=== PATIENT | male | born 1975 | race Caucasian/White ===

== ENCOUNTER 2025-05-02 15:15 | Outpatient (CLI) | payer OTHER, SELFPAY ==
--- OUTSIDE RECORDS SUMMARY | 2015-05-03 03:00 | XMS_ITS | Continuity of Care Document ---
Author Organization [facility] Address [address] [place] [address] [place] [address] Phone Care Team Providers Care Surfacer Operator Name Role Phone Julio Cesar Mendez MD Unavailable Unavailable Allergies, Adverse Reactions, Alerts Substance Reaction Status Criticality No Known Allergies Active No Inform ation Medications Medication Instructions Dosage Effective Dates (start - stop) Status Comments Valium 5 mg tablet take 1 tablet by oral route 2 times every day 5 MG - Active avoid driving or oeprate machines Zoloft 100 mg tablet take 1 tablet by oral route every day 100 MG - Active Depo-Testosterone 200 mg/mL intramuscular oil inject 1 milliliter (200MG) by intramuscular route every 2 weeks 200 MG - Active Robaxin-750 750 mg tablet take 1 tablet by oral route every 6 hours as needed 750 MG - Active PRN for pain, avoid driving or operate machines Seroquel 100 mg tablet take 1 tablet by oral route every bedtime 100 MG - Active Flow-Matthew Vented Needle once every 2 weeks - Active BD Bulk Syringe Slip Tip 1 mL once every two weeks - Active Procedures Procedure Date OFFICE/OUTPATIENT VISIT, EST OFFICE/OUTPATIENT VISIT, EST OFFICE/OUTPATIENT VISIT, EST OFFICE/OUTPATIENT VISIT, EST OFFICE/OUTPATIENT VISIT, EST OFFICE/OUTPATIENT VISIT, EST OFFICE/OUTPATIENT VISIT, EST PREV VISIT, EST, AGE 18-39 Advance Directives Directive Yes / No Effective Date File Name No Information Encounters Encounter Description Practice Location Reason(s) For Visit Diagnoses Date Provider Providers Copied on Encounter OFFICE/OUTPA TIENT VISIT, [facility], [address], [place], [place], [address], [place] tel:[phone] [facility] back pain (chief complaint) LumbagoNoncomplian ce w/ treatment 5 Andrea Harrell. [address], [place], [place], [address] , [place]. tel:[phone] Referring Provider: Julio Cesar Mendez [address], [place], [place], [address]. tel:[phone] OFFICE/OUTPA TIENT VISIT, [facility], [facility] [address], [place], [place], [address], [place] tel:[phone] [facility] depression (chief complaint)P ituitary adenoma (chief complaint)c hronic pain (chief complaint) Depressive disorder, not elsewhere classifiedLumbagoO ther testicular hypofunctionPituit remedios adenoma 5 Andrea Harrell. [address], [place], [place], [address] , [place]. tel:[phone] Referring Provider: Meghan Frank [address], [place], [place], [address]. tel:[phone] OFFICE/OUTPA TIENT VISIT, [facility], [facility] [address], [place], [place], [address], [place] tel:[phone] [facility] depression (chief complaint)c hronic pain (chief complaint)L ow T (chief complaint) LumbagoDepressive disorder, not elsewhere classifiedOther testicular hypofunctionPituit remedios adenoma 5 Andrea Harrell. [address], [place], [place], [address] , [place]. tel:[phone] Referring Provider: Meghan Frank [address], [place], [place], [address]. tel:[phone] OFFICE/OUTPA TIENT VISIT, [facility], [address], [place], [place], [address], [place] tel:[phone] [facility] pituitary lesion (chief complaint)f atigue (chief complaint)c hronic pain (chief complaint)d epression (chief complaint) Depressive disorder, not elsewhere classifiedOther testicular hypofunctionLumbag oPituitary adenoma 5 Andrea Harrell. [address], [place], [place], [address] , [place]. tel:[phone] Referring Provider: Julio Cesar Mendez, [address], [place], [place], [address]. tel:[phone] OFFICE/OUTPA TIENT VISIT, [facility], [address], [place], [place], [address], [place] tel:[phone] [facility] low T (chief complaint)g ynecomastia (chief complaint)p ituitary adenoma (chief complaint)c hronic pain (chief complaint) Other anterior pituitary disordersOther testicular hypofunctionHypert rophy of breastLumbago 4 Andrea Harrell. [address], [place], [place], [address] , [place]. tel:[phone] Referring Provider: Meghan Frank [address], [place], [place], [address]. tel:[phone] OFFICE/OUTPA TIENT VISIT, [facility], [address], [place], [place], [address], [place] tel:[phone] [facility] chornic pain (chief complaint)T (chief complaint)a nxiety (chief complaint)g ynecomastia (chief complaint) DepressionLumbagoO ther testicular hypofunctionHypert rophy of breast 4 Andrea Harrell. [address], [place], [place], [address] , [place]. tel:[phone] Referring Provider: Meghan Frank [address], [place], [place], [address]. tel:[phone] OFFICE/OUTPA TIENT VISIT, EST [facility], [address], [place], [place], [address], [place] tel:[phone] [facility] back pain (chief complaint)i nsomnia (chief complaint)T G (chief complaint)a nxiety (chief complaint) LumbagoDepressionO ther and unspecified hyperlipidemiaHype rtrophy of breast 4 Andrea Harrell. [address], [place], [place], [address] , [place]. tel:[phone] Referring Provider: Julio Cesar Mendez [address], [place], [place], [address]. tel:[phone] PREV VISIT, EST, AGE 18-39 [facility], [address], [place], [place], [address], [place] tel:[phone] [facility] Physical (chief complaint) Routine Medical ExamRoutine Medical Exam 4 Andrea Harrell. [address], [place], [place], [address] , [place]. tel:[phone] Referring Provider: Julio Cesar Mendez [address], [place], [place], [address]. tel:[phone] Family History Family Member Type Diagnosis Age At Onset Father Problem (finding) Cancer - prostate CA 64 Father Problem (finding) Diabetes mellitus Mother Problem (finding) Cancer, lung Brother Problem (finding) Alive and well Payers Payer name Insurance type Covered republican ID Authoriza tion(s) No Information Social History Type Description Quantity Date Captured Comments Alcohol Use Details No Caffeine Use Details Unknown Tobacco Use Status Cigarette smoker Smoking Status Current some day smoker 015 Sex Male Vital Signs Date / Time: Height Weight BMI Pulse Rate Blood Pressure Temperature Respiratory Rate Body Surface Area Head Circumference BMI percentile Pulse Ox Inhaled Ox 9:22 AM 182.88 cm 187.00 lbs 25.3 6 kg/m eter (2) 90 /min 136/78 mm[Hg] 97.5 F 16 /min Chief Complaint And Reason For Visit From encounter dated '05/03/2015 08:00'. back pain (chief complaint). Description: Additional information: Pt has chronic back pain. Pt wants pain meds. He is not happy with muscle relaxant and mobic. He used to be on methadone. Pt wants stronger pain meds. Plan Of Treatment Date Type Action Status Goal Tobacco cessation counseling completed Goal Tobacco cessation counseling completed Goal Tobacco cessation counseling completed Goal Tobacco cessation counseling completed Referral Ordered: Neurology (related to Pituitary adenoma) ordered Referral Ordered: Referrals: Neurology. Evaluate and treat ordered Referral Ordered: Neurology (related to Pituitary adenoma) ordered Referral Ordered: Endocrinology, Diabetes and Metabolism (related to Pituitary adenoma) ordered Referral Ordered: Referrals: Endocrinology, Diabetes and Metabolism ordered Referral Ordered: Referrals: Neurology ordered Referral Ordered: Referral: Neurosurgery. ordered Referral Ordered: Endocrinology (related to Other testicular hypofunction) ordered Referral Ordered: Pain Management (related to Lumbago) ordered Referral Ordered: Referral: Pain Management. ordered Referral Ordered: Referral: Endocrinology. ordered Referral Ordered: MRI BRAIN W/O & W/DYE ordered Referral Ordered: MRI LUMBAR SPINE W/O DYE ordered Referral Ordered: US EXAM, BREAST(S) ordered History Of Present Illness Encounter Date Complaint History Of Prese nt Illness back pain Additional infor mation: Pt has chronic back pain. Pt wants pain meds. He is not happy with muscle relaxant and mobic. He used to be on methadone. Pt wants stronger pain meds. chronic pain Pt has chornic n gabrielle and back pain Pt states that robaxin working ok but he still has a lot of pain Pt denies any loss of bowel or bladder control. Pt told me insurance told him I need to refer him to pain management Pituitary adenoma Pt states that he has apopintment with endo at [facility] in april now. Pt is on depo shot and he feels that it is doing ok with his libodo and energy. Pt denies any urinary symptoms. Pt denies any headache depression The patient pres ents with anxious/fearful thoughts but denies fatigue. The patient denies any headache, vomiting and weight gain. Additional information: Pt has depression and poor mood. Pt denies any suicidal thought. Pt states that prozac is not helping. Pt takes seroquel for insomnia and working ok Pt also has chronic anxiety. Pt treid and failed buspar and vistaril. Low T Pt has low T and also pituariny adenoma. Pt denies any headche. Pt has appointment with iván on 03/10/15. Pt has not heard from neurology yet depression The patient pres ents with anxious/fearful thoughts and fatigue. The patient denies any urinary frequency and vomiting. Additional information: Pt has chronic anxiety and depression. Pt takes prozac and seroquel. Pt stats that he still feels depressed and unable to sleep. Pt denies any suicidal thought, Insomnia also not well cotnrolled. chronic pain Pt has chronic n gabrielle and back pain. Pt used to go to methadone clinic but he does not go anymore. Pt states that he canot afford it. Pt states that mobic does not help. Pt wnats pain meds Pt denies any loss of richard or bladder control depression The patient pres ents with anxious/fearful thoughts and fatigue. The depression is associated with headache. The patient denies any nausea, urinary frequency and vomiting. Additional information: Pt has depression . Pt used to take prozac. Pt is out. Pt denies any suicidal thought. Pt also used to take seroquel for insomnia. Pt is out also. chronic pain Pt has chronic b ack and neck pain. Pt was getting methadone but he was kicked out metadone program due to unable to afford it. fatigue Additional infor mation: Pt has severe fatigue and lack of motivation Pt feels depressed. Pt denies any suicidal thought. pituitary lesion Pt has pituitar y adenoma. Pt has not seen neurosurgery yet. Pt is off depo shot. Pt feels fatigue. Pt has mild headache. Instructions Date Instruction Additional Infor mation No Information Assessments Type Assessment Date assessment Lumbago assessment Noncompliance w/ treatment Mental Status Date Cognitive Assessment Orientation - [place] ed to time, place, person, situation.
--- NOTE | ~2025-05-02 | XR_ITS ---
EXAMINATION: XR knee LT 3V, 05/02/2025 15:38 CDT HISTORY: Inj of L knee X 1 WK AGO MEDIAL KNEE PAIN COMPARISON: No comparisons available. Findings: No acute fracture or malalignment. No significant degenerative changes. Soft tissues unremarkable. Impression: No acute fracture or malalignment. Reviewed, dictated and finalized at location A. Impression: No acute fracture or malalignment.
[2025-05-02 16:13] LABS: Hematocrit 42.7 % (42.0-52.0); Hemoglobin 14.3 g/dL (14.0-18.0); Mean Corpuscular HGB Conc 33.5 g/dl (32-36); Mean Corpuscular Hemoglobin 30.7 pg (26-34); Mean Corpuscular Volume 91.6 fl (80-100); Platelet Count Result 277 k/mm3 (150-375); Red Blood Count 4.66 M/mm3 (4.6-6.20); White Blood Count 9.8 K/mm3 (4.5-10.0)
[2025-05-02 16:18] LABS: Alanine Aminotransferase 15 U/L (6-50); Albumin Level 4.4 g/dL (3.5-5.1); Alkaline Phosphatase 83 U/L (38-126); Anion Gap 9 mmol/L (4-12); Aspartate Amino Transferase 25 U/L (17-59); Bilirubin,Total 0.2 mg/dL (0.2-1.3); Blood Urea Nitrogen 16 mg/dL (9-20); Calcium 8.7 mg/dL (8.4-10.2); Carbon Dioxide 27 mmol/L (22-30); Chloride 104 mmol/L (98-107); Cholesterol 162 mg/dL (0-200); Estimated Glomerular Filt Rate > 60; Glucose 105 mg/dL (65-110); HDL Direct 36 mg/dL; Potassium 3.9 mmol/L (3.4-5.0); Sodium 140 mmol/L (137-145); Total Protein 7.7 g/dL (6.3-8.2); Triglycerides 184 mg/dL (<150)
[2025-05-02 16:28] LABS: Hemoglobin A1C 5.5 % (<5.7)
[2025-05-02 16:54] LABS: Prostate Specific Antigen 0.5 ng/mL (< OR = 4.0); Thyroid Stimulating Hormone 2.390 uIU/mL (0.465-4.680)
--- OUTSIDE RECORDS SUMMARY | 2025-05-02 18:11 | XMS_ITS | Clinical Summary ---
Author Organization [facility] Address [address] [place] [address] Care Team Providers Care Administrative Coordinator Name Role Phone Laura Greer PA-C Primary Care Provider [phone] Source Comments [facility],non-owned Affiliates and Associated Physician Practices is amultiple site organization consisting of ambulatory clinics and hospital sitesin [place], [place], [place] and [place]. This disclosure is being madepursuant to the Care Everywhere program and may not contain all information available regarding this patient. Last updated 18.[employer] [facility] Allergies No known active allergies Medications * This document contains information received from the source organization and may not represent a complete record from that organization. * Be aware that medications may not be up to date on this document. Alwaysverify current medications with the patient. DULoxetine (Cymbalta) 60 MG capsule Take 1 (one) capsule by mouth at bedtime 01/01/2024 Active QUEtiapine (SEROquel) 50 MG tablet Take 1 (one) tablet by mouth 2 times daily 01/01/2024 Active tamsulosin (Flomax) 0.4 MG capsule TAKE 1 CAPSULE BY MOUTH EVERY DAY AT BEDTIME 11/20/2023 Active tenofovir disoproxil fumarate (Viread) 300 MG tabletIndicatio ns:Chronic viral hepatitis B without delta agent and without coma (HCC) Take 1 (one) tablet by mouth once daily as directed. 90 tablet 3 03/23/2024 Active Active Problems Problem Noted Date Diagnosed Date Hepatitis B infection withou t delta agent without hepatic coma 02/10/2024 Overview (02/10/2024): 02/10/24 Fibroscan CAP 170, LSM 5.2 kPa Family History Medical History Relation Name Comments Other - Hepatic/Liver Neg Hx Social History Tobacco Use Types Packs/Day Years Used Date Smoking Tobacco: Every Day Cigarettes 1 30 Smokeless Tobacco: Never Tobacco Cessation:Ready to Q uit: Not Asked; Counseling Given: Not Answered Alcohol Use Standard Drinks/Week Comments Not Currently 0 (1 standard drink = 0.6 oz pur e alcohol) rare ETOH since 29 years old Sex and Gender Information Value Date Recorded Sex Assigned at Not on file Legal Sex Male 6:48 PM FURN[employer] Gender Identity Not on file Sexual Orientation Not on file Last Filed Vital Signs Vital Sign Reading Time Taken Comments Blood Pressure 106/66 02/10/2024 2:12 PM CDT Pulse 84 02/10/2024 2:12 PM CDT Temperature 36.5 C (97.7 F) 02/10/2024 2:12 PM CDT Respiratory Rate 18 05/16/2013 9:00 AM CDT Oxygen Saturation 98% 02/10/2024 2:12 PM CDT Inhaled Oxygen Concentration - - Weight 88 kg (194 lb) 02/10/2024 2:12 PM CDT Height 182.9 cm (6') 02/10/2024 2:12 PM CDT Body Mass Index 26.31 02/10/2024 2:12 PM CDT Plan of Treatment Health Maintenance Due Date Last Done Comments COLOGUARD (AGES 45-75) - COL ON CA SCREENING 1975 COLON MONITORING 1975 COLONOSCOPY - COLON CA SCREENING 1975 CT COLONOGRAPHY - COLON CA SCREENING 1975 Colorectal Cancer Screening 1975 FIT - COLON CA SCREENING 1975 FLEX SIG - COLON CA SCREENING 1975 LIPID TESTING 1975 DTAP/TDAP/TD VACCINES (1 - Tdap) 1994 HEPATITIS B VACCINE (1 of 3 - 19+ 3-dose series) 1994 DEPRESSION SCREENING 08/18/2024 COVID-19 VACCINE (1 - 2023-2 5 season) 2025 INFLUENZA VACCINE (#1) 2025 ZOSTER VACCINE (1 of 2) 2025 SCREENING FOR DIABETES 02/09/2027 4, 05/13/2013 HIV SCREENING Completed 05/12/2013 HEPATITIS C SCREENING Completed 05/15/2013 , 05/13/2013 HIB VACCINE Aged Out No longer eligi ble based on patient's age to complete this topic HPV VACCINE Aged Out No longer eligi ble based on patient's age to complete this topic MENINGOCOCCAL (Group B) VACCINE SHARED DECISION-MAKING Aged Out No longer eligible based on patient's age to complete this topic MENINGOCOCCAL GROUPS A/C/Y/W VACCINE Aged Out No longer eligible b ased on patient's age to complete this topic Goals Goal Patient Goal Type Associated Problems Recent Progress Patient-Stated? Author Medication Management General On track( 024 2:16 PM CDT) Maura Conley RN Note: Expected end date: ongoing Interventions: Take all medications as prescribed Let your doctor know right away about any changes in your medications Make sure to request a refill of your medication at least one week prior to your last dose Procedures Procedure Name Priority Date/Time Associated Diagnosis Comments COMPREHENSIVE METABOLIC PANEL Routine 02/10/2024 3:41 PM CDT Hepatitis B infection without delta agent without hepatic coma, unspecified chronicity HEPATITIS C ANTIBODY Routine 05/15/2013 8:07 PM CDT HIV-1 HIV-2 ANTIGEN/ANTIBODY Routine 05/12/2013 3:24 PM CDT from Last 3 Months or Most Recently Relevant to Health Maintenance Results * (ABNORMAL) COMPREHENSIVE METABOLIC PANEL (02/10/2024 3:41 PM CDT) BUN 15 7 - 26 mg/dL 02/10/2024 4:48 PM CDT [facility] Creatinine 0.88 0.71 - 1.16 mg/dL 02/10/2024 4:48 PM CDT [facility] Sodium 140 136 - 145 mmol/L 02/10/2024 4:48 PM CDT [facility] Potassium 3.8 3.5 - 4.5 mmol/L 02/10/2024 4:48 PM CDT [facility] Chloride 107 98 - 107 mmol/L 02/10/2024 4:48 PM [facility] CO2 27 22 - 29 mmol/L 02/10/2024 4:48 PM [facility] Glucose 78 70 - 115 mg/dL 02/10/2024 4:48 PM [facility] Calcium 9.0 8.4 - 10.2 mg/dL 02/10/2024 4:48 PM [facility] Protein Total 7.4 6.0 - 8.3 g/dL 02/10/2024 4:48 PM [facility] Albumin 3.6 3.4 - 5.0 g/dL 02/10/2024 4:48 PM [facility] Bilirubin Total 0.3 0.2 - 1.2 mg/dL 02/10/2024 4:48 PM [facility] Alkaline Phosphatase 104 40 - 150 U/L 02/10/2024 4:48 PM [facility] ALT 10 5 - 55 U/L 02/10/2024 4:48 PM [facility] AST 12 5 - 34 U/L 02/10/2024 4:48 PM [facility] Anion Gap 6 6 - 16 02/10/2024 4:48 PM [facility] BUN/Creatinine Ratio 17 7 - 23 02/10/2024 4:48 PM [facility] Osmolality Calculated 290 275 - 295 mOsm/kg 02/10/2024 4:48 PM [facility] Albumin/Globulin Ratio 0.9(L) 1.1 - 2.3 02/10/2024 4:48 PM [facility] eGFR by CKD-EPI >90 >=90 mL/min/1.7 3 m2 02/10/2024 4:48 PM [facility] Blood BLOOD SPECIMEN / Unknown Lab Venipuncture / Unknown 02/10/2024 3:41 PM CDT 02/10/2024 4:21 PM [facility] us Arnaud Diggs MD LAB - CHEMISTRY ORDERABLES Fi nal Result [facility] [address] [place] [id number], [facility] [phone] * HEPATITIS C ANTIBODY (05/15/2013 8:07 PM CDT) Pathologist [facility] Hepatitis C Antibody NONREACTIVE NONREACTIVE [facility] Comment: Anti-HCV screen indicates no serologic evidence of past or current infection with Hepatitis C Virus. Patients with unexplained liver disease who are immunocompromised or suspected of having acute Hepatitis C infection may benefit from Nucleic Acid Test (JU) for Hepatitis C Viral RNA to confirm Hepatitis C status. 05/15/2013 8:07 PM CDT 05/15/2013 8:20 PM CDT Jared Matthew MD LAB - CHEMISTRY ORDERABLE S Final Result Performing Organization Address City/[facility]/ZIP Co de Phone Number [address] [phone] * HIV-1 HIV-2 ANTIGEN/ANTIBODY (05/12/2013 3:24 PM CDT) Pathologist [facility] HIV Antigen/Antib hugo 1 & 2 NONREACTIVE NONREACTIVE [facility] Comment:HIV-1 p24 AG and HIV -1/HIV-2 AB NOT DETECTED. Blood specimen (specimen) 05/12/2013 3:24 PM CDT 05/12/2013 3:34 PM CDT us Jared Matthew MD LAB - HEMATOLOGY ORDERABL ES Final Result Performing Organization Address City/[facility]/ZIP Co de Phone Number [address] [phone] from Last 3 Months or Most Recently Relevant to Health Maintenance Insurance MEDICAID - [place] Care Teams Administrative Coordinator Relationship Specialty Start Date End Date Laura Greer PA-C [address] [place] [address] PCP - General Physician [employer] Electronics Technical Officer 10/08/23
--- OUTSIDE RECORDS SUMMARY | 2025-05-02 18:11 | XMS_ITS | Clinical Summary ---
Author Organization [facility] Address [address] [place] [address] Care Team Providers Care [employer] Supervisor Name Role Phone None, Provider MD Primary Care Provider Unavaila ble Allergies No known active allergies Medications tamsulosin 0.4 MG CapIndications: prostate Take 0.4 mg by mouth nightly. Indications: prostate Active omeprazole 20 MG capsuleIndicati ons:Reflux Esophagitis Take 20 mg by mouth daily. Indications: Lower Esophagus Inflammation From Backflow of Stomach Acid Active mirtazapine 15 MG tabletIndicatio ns:mood Take 15 mg by mouth nightly at bedtime. Indications: mood Active FLUoxetine 20 MG capsule Take 20 mg by mouth nightly at bedtime. Active busPIRone 30 MG tablet Take 30 mg by mouth nightly at bedtime. Active metroNIDAZOLE 500 MG tablet Take 500 mg by mouth 2 (two) times a day. Take for 14 days Started 10/12/21 Active acetaminophen-c odeine 300-30 MG tabletIndicatio ns:Acute Pain < 7 Day Supply Take 1 tablet by mouth every 6 (six) hours as needed for Pain. Indications: Acute Pain < 7 Day Supply 28 tablet 2 Active Encounters Date Type Department Care Team Description 04/28/2025 4:02 PM CDT - 04/28/2025 5:50 PM CDT Emergency [facility] Emergency Room [address] [place] [id number] Soniya Sorensen MD Flank Pain; Back Pain Discharge Disposition: Home or Self Care (Routine Discharge) 04/28/2025 Travel from Last 3 Months Social History Tobacco Use Types Packs/Day Years Used Date Smoking Tobacco: Every Day Cigarettes Passive Smoke Exposure: Past Smokeless Tobacco: Never Tobacco Cessation:Ready to Q uit: Not Asked; Counseling Given: Not Answered Alcohol Use Standard Drinks/Week Comments Not Currently 0 (1 standard drink = 0.6 oz pur e alcohol) Sex and Gender Information Value Date Recorded Sex Assigned at Male 04/28/2025 4:20 PM CDT Legal Sex Male 8:34 PM CDT Gender Identity Male 04/28/2025 4:20 PM CDT Sexual Orientation Not on file Last Filed Vital Signs Vital Sign Reading Time Taken Comments Blood Pressure 122/70 04/28/2025 5:50 PM CDT Pulse 66 04/28/2025 5:50 PM CDT Temperature 36.7 C (98 F) 04/28/2025 5:50 PM CDT Respiratory Rate 18 04/28/2025 5:50 PM CDT Oxygen Saturation 95% 04/28/2025 5:50 PM CDT Inhaled Oxygen Concentration - - Weight 79.4 kg (175 lb) 04/28/2025 4:10 PM CDT Height 182.9 cm (6') 04/28/2025 4:10 PM CDT Body Mass Index 23.73 04/28/2025 4:10 PM CDT Plan of Treatment Health Maintenance Due Date Last Done Comments Colorectal Cancer Screening Colonoscopy (10 Years) 1975 Annual Physical 1978 Hepatitis B Vaccines (1 of 3 - 19+ 3-dose series) 1994 Pneumococcal Vaccine: Pediat rics (0 to 5 Years) and At-Risk Patients (6 to 49 Years) (2 of 2 - PCV) 05/04/2016 05/04/2015 COVID-19 Vaccine ( - 2024-2 6 season) 2025 10/24/2020 DTaP, Tdap and Td Vaccines ( 2 - Td or Tdap) 05/13/2025 05/13/2015 Hepatitis C Completed 05/15/2013 Meningococcal B Vaccine Aged Out No l onger eligible based on patient's age to complete this topic Meningococcal Vaccine Aged Out No georgiana antonia eligible based on patient's age to complete this topic RSV Immunizations Under 20 Months Aged Out No longer eligible based on patient's age to complete this topic Procedures Procedure Name Priority Date/Time Associated Diagnosis Comments CT ABD+PEL WO CON STAT 04/28/2025 4:3 8 PM CDT URINALYSIS, AUTO, COMPLETE STAT 04/28/2025 4:30 PM CDT LIPASE STAT 04/28/2025 4:30 PM CDT COMPREHENSIVE METABOLIC PANEL STAT 04/28/2025 4:30 PM CDT CBC W/DIFF AUTOMATED STAT 04/28/2025 4:30 PM CDT from Last 3 Months Results * CT ABD+PEL WO CON (04/28/2025 4:38 PM CDT) Anatomical Region Laterality Modality Abdomen Computed Tomogra phy 04/28/2025 5:10 PM CDT Impressions 04/28/2025 5:13 PM CDT IMPRESSION: 1) No acute inflammatory change, abscess or ascites. No evidence to suggest acute appendicitis. 2. No evidence of ureteral stone nor hydronephrosis on either side. 3. No evidence of mechanical bowel obstruction or perforation. Ordered By: SONIYA SORENSEN Interpreted By: Fawad Zambrano MD, 04/28/2025 5:10 PM Narrative 04/28/2025 5:13 [place] [address] Examination: CT ABD+PEL WO CON Exam time: 04/28/2025 4:38 PM Clinical history: Right upper quadrant/right flank pain for 4 days Comparison: None Technique: Axial images obtained from xiphoid process to pubic symphysis without contrast using low-dose CT technique. Sagittal and coronal reconstruction. Findings: CT ABDOMEN: Visualized portions of the lung bases demonstrate no acute abnormality. No significant hiatal hernia. The liver is normal in size. No significant focal intrahepatic lesion. The gallbladder has been removed. The spleen, pancreas, and the adrenal glands are unremarkable. Kidneys demonstrate no acute perirenal inflammatory stranding or fluid. No renal calcifications. There is no evidence of ureteral stone nor hydronephrosis on either side. No evidence to suggest solid renal mass lesion. There is no acute inflammatory change, abscess nor ascites. No evidence to suggest acute appendicitis. No evidence of mechanical bowel obstruction or perforation. No significant lymphadenopathy. Abdominal aorta and IVC are unremarkable. CT PELVIS: No pelvic mass or adenopathy. No acute inflammatory change, abscess nor ascites. Procedure Note Fawad Zambrano MD - 04/28/2025 [facility] [address] [place] [address] Examination: CT ABD+PEL WO CON Exam time: 04/28/2025 4:38 PM Clinical history: Right upper quadrant/right flank pain for 4 days Comparison: None Technique: Axial images obtained from xiphoid process to pubic symphysiswithout contrast using low-dose CT technique. Sagittal and coronalreconstruction. Findings: CT ABDOMEN: Visualized portions of the lung bases demonstrate no acuteabnormality. No significant hiatal hernia. The liver is normal in size. No significant focal intrahepatic lesion. Thegallbladder has been removed. The spleen, pancreas, and the adrenal glands are unremarkable. Kidneys demonstrate no acute perirenal inflammatory stranding or fluid. Norenal calcifications. There is no evidence of ureteral stone norhydronephrosis on either side. No evidence to suggest solid renal masslesion. There is no acute inflammatory change, abscess nor ascites. No evidence tosuggest acute appendicitis. No evidence of mechanical bowel obstruction orperforation. No significant lymphadenopathy. Abdominal aorta and IVC areunremarkable. CT PELVIS: No pelvic mass or adenopathy. No acute inflammatory change,abscess nor ascites. IMPRESSION: 1) No acute inflammatory change, abscess or ascites. No evidence tosuggest acute appendicitis. 2. No evidence of ureteral stone nor hydronephrosis on either side. 3. No evidence of mechanical bowel obstruction or perforation. Ordered By: SONIYA SORENSEN Interpreted By: Fawad Zambrano MD, 04/28/2025 5:10 PM us Soniya Sorensen MD CT Final Resul t * URINALYSIS, AUTO, COMPLETE (04/28/2025 4:30 PM CDT) COLOR (U) YELLOW 04/28/2025 5:00 PM CDT [facility] TRANSPARENCY CLEAR 04/28/2025 5:00 PM CDT [facility] SPECIFIC GRAVITY (U) 1.015 1.000 - 1.030 04/28/2025 5:00 PM CDT [facility] U PH 6.0 5.0 - 9.0 04/28/2025 5:00 PM T [facility] LEUKOCYTES (U) NEGATIVE NEGATIVE 04/28/2025 5:00 PM CDT [facility] NITRITES NEGATIVE NEGATIVE 04/28/2025 5:00 PM CDT [facility] PROTEIN RANDOM (U) NEGATIVE NEGATIVE 04/28/2025 5:00 PM T [facility] GLUCOSE (U) NEGATIVE NEGATIVE 04/28/2025 5:00 PM T [facility] KETONES MG/DL (U) NEGATIVE NEGATIVE 04/28/2025 5:00 PM T [facility] BILIRUBIN (U) NEGATIVE NEGATIVE 04/28/2025 5:00 PM T [facility] BLOOD (U) NEGATIVE NEGATIVE 04/28/2025 5:00 PM T [facility] WBC/HPF NONE SEEN 0 - 5 /HPF 04/28/2025 5:00 PM T [facility] RBC/HPF NONE SEEN 0 - 5 /HPF 04/28/2025 5:00 PM T [facility] EPI/HPF NONE SEEN /HPF 04/28/2025 5:00 PM T [facility] URINE SPECIMEN OBTAINED BY CLEAN CATCH PROCEDURE / Unknown 04/28/2025 4:30 PM CDT us Soniya Sorensen MD URINE ORDERABLES Final Resu lt [facility] [address] [place] [address], [place] [phone] * (ABNORMAL) COMPREHENSIVE METABOLIC PANEL (04/28/2025 4:30 PM CDT) GLUCOSE 93 70 - 99 MG/DL 04/28/2025 4:50 PM CDT [facility] BUN 13 7 - 18 MG/DL 04/28/2025 4:50 PM CDT [facility] CREATININE S/P/B 0.83 0.7 - 1.3 MG/DL 04/28/2025 4:50 PM CDT [facility] SODIUM S/P/B 138 136 - 145 MMOL/L 04/28/2025 4:50 PM CDT [facility] POTASSIUM S/P/B 4.3 3.5 - 5.1 MMOL/L 04/28/2025 4:50 PM CDT [facility] CHLORIDE S/P/B 103 100 - 108 MMOL/L 04/28/2025 4:50 PM CDT [facility] CO2 29.4 21 - 32 MMOL/L 04/28/2025 4:50 PM CDT [facility] CALCIUM S/P/B 8.4(L) 8.5 - 10.1 MG/DL 04/28/2025 4:50 PM CDT [facility] BILIRUBIN TOTAL S/P/B 0.2 0.2 - 1.2 MG/DL 04/28/2025 4:50 PM CDT [facility] TOTAL PROTEIN S/P/B 7.5 6.4 - 8.2 G/DL 04/28/2025 4:50 PM CDT [facility] ALBUMIN S/P/B 3.7 3.4 - 5.0 G/DL 04/28/2025 4:50 PM CDT [facility] AST 13(L) 15 - 37 U/L 04/28/2025 4:50 PM CDT [facility] ALT 18 16 - 60 U/L 04/28/2025 4:50 PM CDT [facility] ALKALINE PHOSPHATASE S/P/B 87 50 - 136 U/L 04/28/2025 4:50 PM CDT [facility] ANION GAP 5.6 5 - 15 MMOL/L 04/28/2025 4:50 PM CDT [facility] BUN CREATININE RATIO 15.7 6 - 26 04/28/2025 4:50 PM T [facility] A/G RATIO 1.0 1.0 - 2.0 RATIO 04/28/2025 4:50 PM CDT [facility] GFR ESTIMATE >90 >90 ML/MIN/1.7 3 M2 04/28/2025 4:50 PM CDT [facility] Comment: NOTE: eGFR is not calculated for patients <18 years of age. This is an estimated GFR calculation using the new CKD EPI creatinine equation without race and so does not require a correction factor for race. This estimated GFR should not be used for calculating drug doses. 04/28/2025 4:30 PM CDT us Soniya Sorensen MD LABORATORY Final Resul t [facility] [address] [place] [address], [place] [phone] * (ABNORMAL) CBC W/DIFF AUTOMATED (04/28/2025 4:30 PM CDT) WBC 7.16 4.4 - 11.0 x10'3/uL 04/28/2025 4:37 PM CDT [facility] RBC 4.76 4.50 - 5.90 x10'6/uL 04/28/2025 4:37 PM CDT [facility] HGB 14.6 14.0 - 17.5 G/DL 04/28/2025 4:37 PM CDT [facility] HCT 43.7 41.5 - 50.4 % 04/28/2025 4:37 PM CDT [facility] MCV 91.8 80.0 - 96.0 FL 04/28/2025 4:37 PM CDT [facility] MCH 30.7 26.5 - 31.4 PG 04/28/2025 4:37 PM CDT [facility] MCHC 33.4 31.9 - 34.8 G/DL 04/28/2025 4:37 PM CDT [facility] RDW 14.6(H) 12.3 - 14.3 % 04/28/2025 4:37 PM CDT [facility] PLT 277 151 - 353 x10'3/uL 04/28/2025 4:37 PM CDT [facility] MPV 9.7 9.7 - 11.9 FL 04/28/2025 4:37 PM CDT [facility] RBC MORPHOLOGY NORMAL 04/28/2025 4:37 PM CDT [facility] PLT MORPH. NORMAL 04/28/2025 4:37 PM CDT [facility] WBC MORPHOLOGY NORMAL 04/28/2025 4:37 PM CDT [facility] LYMPHOCYTES % 28.9 15.8 - 45.0 % 04/28/2025 4:37 PM CDT [facility] NEUTROPHILS % 60.2 42.1 - 71.9 % 04/28/2025 4:37 PM CDT [facility] MONOCYTES % 6.8 5.7 - 12.5 % 04/28/2025 4:37 PM CDT [facility] EOSINOPHILS 3.4 0.0 - 5.6 % 04/28/2025 4:37 PM CDT [facility] BASOPHILS 0.6 0.0 - 1.3 % 04/28/2025 4:37 PM CDT [facility] ABS. NEUTROPHILS 4.31 1.40 - 6.00 x10'3/uL 04/28/2025 4:37 PM CDT [facility] IMMATURE GRANS % 0.1 0.0 - 0.5 % 04/28/2025 4:37 PM CDT [facility] ABS. LYMPHOCYTES 2.07 0.80 - 4.70 x10'3/uL 04/28/2025 4:37 PM CDT [facility] 04/28/2025 4:30 PM CDT us Soniya Sorensen MD LABORATORY Final Resul t Performing Organization Address [facility]/ZIP Co de Phone Number [facility] [address] [place] [address], [place] [phone] * LIPASE (04/28/2025 4:30 PM CDT) LIPASE 26 16 - 77 UNITS/L 04/28/2025 4:50 PM CDT [facility] 04/28/2025 4:30 PM CDT us Soniya Sorensen MD LABORATORY Final Resul t Performing Organization Address [facility]/ZIP Co de Phone Number [facility] [address] [place] [address], [place] [phone] from Last 3 Months Insurance Advance Directives Documents on File Type Date Recorded Patient Header Boss Expl anation Advance Directives and Living Will 04/27/2013 12:00 AM [employer] Advance Directives and Living Will 04/27/2013 12:00 AM [employer] Advance Directives and Living Will 04/27/2013 12:00 AM [employer]ES Advance Directives and Living Will 09/26/2011 12:00 AM [employer]ES Advance Directives and Living Will 09/26/2011 12:00 AM [employer]ES Advance Directives and Living Will 05/29/2011 12:00 AM ADVANCED DIRECTIVES Care Teams [employer] Supervisor Relationship Specialty Start Date End Date None, Provider, PCP - General UNKNOWN PHYSICIAN SPECIALTY 04/28/25
== END 2025-05-02 15:16 | disposition home or self-care (01) ==
DX: Z00.00 Encounter for general adult medical examination without abnormal findings (principal); I10 Essential (primary) hypertension; M25.562 Pain in left knee
CPT/HCPCS: 36415; 73562; 80053; 80061; 83036; 84153; 84443; 85027